=== PATIENT | female | born 1945 | race Caucasian/White ===

== ENCOUNTER → 2019-06-08 11:09 | Outpatient (BNVA) | payer MEDICARE, BC, SELFPAY | PROVIDERS: Family Provider Electrodiagnostic Medicine; PCP Electrodiagnostic Medicine; Visit Provider Podiatrist Foot & Ankle Surgery | DX: Z48.89 Encounter for other specified surgical aftercare (principal) | CPT/HCPCS: 73610 ==

== ENCOUNTER 2020-10-10 18:28 | Emergency (ER) | payer MEDICARE, BC, SELFPAY ==
--- NOTE | 2020-10-10 18:35 | XRR_ITS ---
PROCEDURE INFORMATION: Exam: XR Left Shoulder Exam date and time: 10/10/2020 6:38 PM Age: 75 years old Clinical indication: Injury or trauma; Fall; Blunt trauma (contusions or hematomas); Shoulder; Left TECHNIQUE: Imaging protocol: XR Left shoulder. Views: 2 or more views. Total images: 2 COMPARISON: No relevant prior studies available. FINDINGS: Bones/joints: Minimally displaced simple comminuted left humeral head and neck fracture. Osteoporosis. 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 Soft tissues: Unremarkable. XR/XR shoulder LT min 2V* [id number] IMPRESSION: Minimally displaced simple comminuted left humeral head neck fracture.
--- NOTE | 2020-10-10 18:42 | ED_ITS ---
HPI - Fall General: Chief Complaint: Extremity Injury, Upper Stated Complaint: FALL, L SHOULDER PAIN Time Seen by Provider: 10/10/20 18:42 Source: patient Mode of arrival: ambulatory Limitations: no limitations History of Present Illness: HPI Narrative: 75-year-old female who states she fell today. 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 Patient has had shoulder pain since event. She fell just before arrival. She denies hitting her head denies any neck pain. She denies any extremity pain is ambulatory. She had fentanyl in route and states her pain is now 2 out of 10. Associated symptoms-after fall: Denies abdominal pain, chest pain or headache(s) Review of Systems Const: Denies: fever(s), chills, body aches or change in appetite Eyes: Denies: blurry vision or eye discomfort ENMT: Denies: throat pain or dental pain Card: Denies: chest pain Resp: Denies: dyspnea GI: Denies: abdominal pain, nausea, vomiting or diarrhea : Denies: dysuria Musc: Reports: extremity pain Skin/Breast: Denies: rash Neuro: Denies: headache(s) Psych: Denies: depression Pasquale/Lymph: Denies: easy bruising All/Imm: Denies: urticaria PFSH ED PFSH: Medical History (Updated 10/10/20 @ 19:13 by Abbey Prajapati MD) Hypertension Surgical History History of melanoma excision Family History Denies family history of Diabetes Cancer Social History Smoking and tobacco status: never smoked Alcohol intake: current Household members: significant other Current occupational status: unemployed Physical Exam Const: COMMON NORMALS: no acute distress, patient oriented x3 and healthy appearing HENMT: COMMON NORMALS: normocephalic and atraumatic HEAD & SCALP: normocephalic and atraumatic Eye: COMMON NORMALS: Equal, round and reactive pupils present and EOMs intact bilaterally PUPIL: Yes Equal, round and reactive pupils present Neck/C-Spine: COMMON NORMALS: full ROM and supple Chest: COMMONS NORMALS: normal inspection of the chest and normal palpation of entire chest wall Resp: COMMON NORMALS: normal respiratory effort, No retractions, No use of accessory muscles and clear to auscultation bilaterally AUSCULTATION: clear to auscultation bilaterally Cardio: COMMON NORMALS: regular rate, regular rhythm and No murmurs present (Cardio) RATE: regular rate RHYTHM: regular rhythm GI: COMMON NORMALS: Normal to inspection, nondistended, normoactive bowel sounds present, Soft to palpation, non-tender and no masses PALPATION: Yes Soft to palpation Extremity: NARRATIVE EXTREMITY EXAM: Tenderness over left Neuro: COMMON NORMALS: patient oriented x3, moves all extremities and no focal motor deficits Psych: COMMON NORMALS: mental status grossly normal, Normal thought process present and cooperative THOUGHT PROCESS: Normal thought process present Skin: COMMON NORMALS: no rashes or lesions noted and no wounds GENERAL SKIN EXAM: no rashes or lesions noted Course Vital Signs: Vital signs: Vital Signs Temperature 98.3 F 10/10/20 19:01 Pulse Rate 68 10/10/20 19:01 Respiratory Rate 18 10/10/20 19:01 Blood Pressure 91/54 10/10/20 19:01 Pulse Oximetry 98 10/10/20 19:01 MDM - Fall MDM Narrative: Medical decision making narrative: Patient presents here with a humeral neck fracture from a fall. She has no signs of any other injuries. She is able to ambulate. Patient is stable for discharge and is to return if wo rsening. We will have her follow-up with orthopedics. Imaging Data^: xr L shoulder: Attestation: I personally reviewed and interpreted this imaging study as follows: My impression: Left humeral head neck fx Discharge Plan Discharge Patient Disposition: Home Clinical Impression: Fracture of humerus Qualifiers: Encounter type: initial encounter Humerus Location: proximal Fracture type: closed Fracture alignment: nondisplaced Laterality: left Condition: Stable Prescriptions: New hydrocodone-acetaminophen 5-325 mg tablet 1 tab PO Q6H PRN (Reason: pain) Qty: 14 RF: 0 No Action lisinopril 5 mg tablet 5 mg PO DAILY RF: 0 citalopram 10 mg tablet 10 mg PO DAILY RF: 0 Discharge Orders: Discharge ED (Routine); Ordered 10/10/20 Ordered By: Abbey Prajapati Referrals: Kyle Ferrari DO [Primary Care Provider] - Rashad Teague MD [Physician] - 1-3 days Discharge Diet: Advance as tolerated Discharge Activity: Resume usual activity Patient Instructions: Arm Fracture in Adults (ED), Opioid Safety Coding Level of Care Code ED Ball Assembler for Chg Fwd Exam Comprehensive
[2020-10-10 19:01] VITALS: BP 91/54; PULSE 68; RESP 18; TEMP 36.8; O2SAT 98; BMI 33.1
[2020-10-10 20:00] VITALS: BP 103/65; PULSE 80; RESP 20; TEMP 36.6; O2SAT 97
[2020-10-10] MEDS: HYDROcodone-acetaminophen 5-325 mg Tablet 1 TAB PO (20:03)
--- NOTE | 2020-10-11 11:31 | DCPLANNER ---
warehouse manager had message to schedule a follow up appointment for patient with ortho for a humerus fracture. warehouse manager called [facility], spoke with Twila, gave clinic patients information. warehouse manager was told that patients information would be printed and reviewed. Clinic will call patient with appointment information.
--- NOTE | 2020-10-16 08:02 | DCPLANNER ---
Patient has a follow up appointment scheduled for Saturday, October 17, 2020 at 1:[address] Teague. Clinic will call patient with appointment information.
--- NOTE | 2020-11-15 17:03 | DCPLANNER ---
Patient had a follow up appointment scheduled for 10.17.[address] Teague at [facility] - patient did attend appointment.
== END 2020-10-10 20:15 | disposition home or self-care (01) ==
LOC: ER 19:46
PROVIDERS: Emergency Provider Emergency Medicine; PCP Electrodiagnostic Medicine
DX: S42.202A Unspecified fracture of upper end of left humerus, initial encounter for closed fracture (principal); I10 Essential (primary) hypertension; W19.XXXA Unspecified fall, initial encounter
CPT/HCPCS: 29240; 73030; 99283

== ENCOUNTER 2020-11-13 06:00 | Outpatient (RCR) | payer MEDICARE, BC, SELFPAY | END 2020-11-28 23:59 | disposition home or self-care (01) | LOC: TPT 06:00 | PROVIDERS: PCP Electrodiagnostic Medicine; Referring Provider Orthopaedic Surgery; Visit Provider Orthopaedic Surgery | DX: S42.202D Unspecified fracture of upper end of left humerus, subsequent encounter for fracture with routine healing (principal); X58.XXXD Exposure to other specified factors, subsequent encounter | CPT/HCPCS: 97110; 97140; 97161 ==

== ENCOUNTER → 2021-04-08 12:15 | Outpatient (BNVA) | payer MEDICARE, BC, SELFPAY | PROVIDERS: PCP Electrodiagnostic Medicine; Visit Provider Family Medicine | DX: F32.A Depression, unspecified (principal); I10 Essential (primary) hypertension | CPT/HCPCS: 80053; 80061; 84443; 85025 ==

== ENCOUNTER → 2022-04-10 16:00 | Outpatient (BNVA) | payer MEDICARE, BC, SELFPAY | PROVIDERS: PCP Electrodiagnostic Medicine; Visit Provider Family Medicine | DX: I10 Essential (primary) hypertension (principal); F32.A Depression, unspecified; Z23 Encounter for immunization | CPT/HCPCS: 80053; 80061; 84443; 85025 ==